=== PATIENT | female | born 1975 | race African-American/Black ===

== ENCOUNTER 2018-04-17 14:51 | Observation (INO) | payer OTHER ==
[2018-04-17] MEDS ORDERED: ACETAMINOPHEN 500 MG TAB PO PRN (15:21)
[2018-04-17] MEDS ORDERED: ONDANSETRON 4 MG/2 ML VIAL IV PRN (15:21)
--- NOTE | 2018-04-17 17:14 | P.SSS ---
Patient History Date of Service: 04/17/18 Primary Care Provider: Dr Huddleston Reason for admission: DVT History of Present Illness: This is a 43-year-old female with no significant past medical history who presented to the [facility] with swelling of her right lower extremity. Patient noted that she has been having some swelling behind her knee for past 5 days and has gotten progressively worse along with the pain and thus decided to come to the ER for further workup. It the urgent care patient was found to have right sided popliteal vein DVT and was transferred over to the hospital for further care. Patient denied having any shortness of breath chest pain fever chills nausea vomiting or any other associated symptoms at this Allergies morphine Adverse Reaction (Verified 04/17/18 15:38) Nausea/Vomiting Penicillins Adverse Reaction (Verified 04/17/18 15:38) Itching/Hives/Rash Home Medications: Amlodipine Besylate 5 mg PO DAILY 04/17/18 Apixaban [Eliquis] 5 mg PO BID #74 tablet 04/17/18 Cholecalciferol (Vitamin D3) [Vitamin D 1000 Iu Tab*] 1 tab PO DAILY 04/17/18 Docosahexanoic AC/Epa [Fish Oil 1,000 MG*] 1 cap PO DAILY 04/17/18 Nebivolol HCl [Bystolic*] 5 mg PO DAILY 04/17/18 - Past Medical/Surgical History Has patient received pneumonia vaccine in the past: No Review of Systems 10-point ROS is otherwise unremarkable Physical Examination - Vital Signs Temperature: 97.6 F Blood Pressure: 135/67 Pulse: 66 Respirations: 18 - Physical Exam General: Alert, In no apparent distress HEENT: Atraumatic, PERRLA, Mucous membr. moist/pink, EOMI, Sclerae nonicteric Neck: Supple, 2+ carotid pulse no bruit, No LAD, Without JVD or thyroid abnormality Respiratory: Clear to auscultation bilaterally, Normal air movement Cardiovascular: Regular rate/rhythm, Normal S1 S2 Gastrointestinal: Normal bowel sounds, No tenderness Musculoskeletal: Swelling Integumentary: No rashes Neurological: Normal gait, Normal speech, Normal strength at 5/5 x4 extr, Normal tone, Normal affect Lymphatics: No axilla or inguinal lymphadenopathy - Diagnosis (Problem(s)) (1) DVT (deep venous thrombosis) Current Visit: Yes Status: Acute Plan: Right lower leg in DVT in the popliteal [place] most likely secondary to OCP use -patient was given weight based Lovenox at the urgent care. Was transitioned over to Eliquis here in the hospital. Discharged home on Eliquis 10 mg b.i.d. for total 7 days and after that 5 mg b.i.d.. Eliquis 10 dollar co-pay card given to the patient. Qualifiers: DVT location: lower extremity Affected thrombotic vein of extremity: popliteal Chronicity: acute Laterality: right Qualified Code(s): I82.431 - Acute embolism and thrombosis of right popliteal vein (2) HTN (hypertension) Current Visit: Yes Status: Chronic Plan: Stable while here in the hospital Qualifiers: Hypertension type: essential hypertension Qualified Code(s): I10 - Essential (primary) hypertension Treatment Summary: Once patient had resolution of her symptoms and she was discharged home under stable condition was given a prescription for Eliquis for her DVT. - Disposition Disposition: ROUTINE DISCHARGE Condition: GOOD Patient Discharge Instructions: Please f.u with PCP in 1 to 2 days post discharge. New medication. Eliquis 5mg BID: Take 10mg BID for 7 days and then 5mg BID. Eliquis 10 dollar copay card #. rxbin: [id number]. PCN: [id number]. GRP: [id number]. ID: [id number] Diet: Regular Activity: Ad navya
[2018-04-17] MEDS ORDERED: TRAMADOL HCL 50 MG TAB PO ONE (17:44)
[2018-04-18] MEDS ORDERED: NEBIVOLOL HCL 5 MG TAB PO SCH (09:00)
[2018-04-18] MEDS ORDERED: AMLODIPINE 5 MG TAB PO SCH (09:00)
[2018-04-18] MEDS ORDERED: VITAMIN D 1000 UNIT TAB PO SCH (09:00)
== END 2018-04-17 18:20 | disposition home or self-care (01) ==
LOC: 2ND 14:51
PROVIDERS: ADMIT Family Medicine; ATTEND Family Medicine
DX: I82.431 Acute embolism and thrombosis of right popliteal vein (principal); I10 Essential (primary) hypertension; Z88.2 Allergy status to sulfonamides
CPT/HCPCS: G0378